=== PATIENT | male | born 1980 | race Caucasian/White ===

== ENCOUNTER 2018-10-21 11:21 | Emergency (ER) | payer OTHER ==
[~2018-10-21] VITALS: Ht 180.3 cm; Wt 93.0 kg
[2018-10-21] MEDS ORDERED: IBUP-1114 PO (11:50)
--- NOTE | 2018-10-21 11:55 | REP ---
Clinical: Trauma. Technique: AP, lateral, bilateral oblique views right foot . Findings: The osseous structures and joint spaces are intact and normal. There is no evidence for acute fracture or dislocation. Surrounding soft tissues are unremarkable. No subcutaneous emphysema or radiodense foreign body. Impression: Normal right foot series . No acute fracture or dislocation. Electronically Signed by Albert Kaur MD 10/21/2018 11:47 A
[2018-10-21 13:04] VITALS: BP 133/90
== END 2018-10-21 13:10 | disposition home or self-care (01) ==
LOC: M ED 11:21
DX: S96.911A Strain of unspecified muscle and tendon at ankle and foot level, right foot, initial encounter (principal); Y92.000 Kitchen of unspecified non-institutional (private) residence as the place of occurrence of the external cause; Y93.9 Activity, unspecified; W18.40XA Slipping, tripping and stumbling without falling, unspecified, initial encounter; Z90.89 Acquired absence of other organs